=== PATIENT | male | born 1950 | race Caucasian/White ===

== ENCOUNTER 2021-07-21 19:42 | Emergency (ER) | payer MEDICAID, SELFPAY ==
--- NOTE | ~2021-07-21 | XR_ITS ---
EXAMINATION: XR ABDOMEN KUB CLINICAL INDICATION: G-tube placement check COMPARISON: None TECHNIQUE: AP view of the abdomen. FINDINGS: Contrast was injected via the gastrostomy tube. The injected contrast appears to be within the stomach partially outlining the G-tube balloon. Residual contrast noted within the transverse colon likely from prior procedure although I do not have any prior imaging available for comparison. XR/XR KUB IMPRESSION: Contrast injected via gastrostomy tube appears be within the stomach partially outlining the gastric tube balloon.
[2021-07-21 19:50] VITALS: BP 132/74; PULSE 82; O2SAT 100
[2021-07-21 20:03] VITALS: BP 149/84; PULSE 65; RESP 20; TEMP 36.4; O2SAT 95; BMI 20.9
--- NOTE | 2021-07-21 20:20 | PC.NURSE ---
Addendum entered by Park Varela 07/21/21 20:51: peg tube not G-tube. Original Note: pt alert, G-tube replaced by provider. pt tolerated it well, no sign of distress. Pt being discharge back to facility. Will continue to monitor.
--- NOTE | 2021-07-21 20:23 | ED.GENADULT ---
HPI - General Adult General Chief complaint: General Medical Stated complaint: g-tube replacement Time Seen by Provider: 07/21/21 20:16 Source: patient Mode of arrival: EMS History of Present Illness HPI narrative: [facility] , one of the feeding tip was broken failure no other active complaints Related Data Allergies Allergy/AdvReac Type Severity Reaction Status Date / Time No Known Allergies Allergy Verified 07/21/21 20:16 Review of Systems Review of Systems: Yes all other systems are reviewed and are negative [facility] Social History Social History Patient Tobacco Use Status: Never used Tobacco Use of substances other than those prescribed or required for medical reasons: No Advance Directives: No Advance Directives Information Provided: Yes Physical Exam Vital Signs: Vital Signs: Last Vital Signs Temp 97.9 F 07/21/21 20:24 Pulse 71 07/21/21 20:24 Resp 16 07/21/21 20:24 BP 167/103 H 07/21/21 20:24 Pulse Ox 96 07/21/21 20:24 BMI result Body Mass Index 20.9 Appearance: Alert. Oriented X3. No acute distress. ENT: Pharynx normal. Oral Mucosa moist Neck: Normal inspection. Neck supple. CVS: Normal heart rate and rhythm. Pulses normal. Respiratory: No respiratory distress. Equal air entry bilateral, Abdomen: Soft and nontender. Feeding tube in place, Bowel sounds are present, broken tip of G tube Skin: Skin warm and dry. Normal skin color. Normal skin turgor. Extremities: No lower extremity edema. Neuro: Oriented X 3. No motor deficit. Procedures Feeding Tube Replacement Type of Tube: gastrostomy Insertion Site Prior to Procedure: erythematous Tube Used for Reinsertion: other [place] Tube Size (F): 22 Balloon size (mL): 10 Verification of Placement: KUB and gastrografin injection Patient Tolerated Procedure: well Medical Decision Making MDM Narrative Medical decision making narrative: Patient GT was replaced with 22 [place] Discharge Plan Discharge Clinical Impression: Gastrostomy tube in place Patient Disposition: Home, Self-Care Instructions: PEG Tube Insertion (DC) Additional Instructions: Local care as advised 22 [place] G-tube was replaced and okay to use Interventions: ED Discharge Assessment Last Done: 07/21/21 20:51 Discharge Date/Time: 07/21/21 20:52
[2021-07-21 20:24] VITALS: BP 167/103; PULSE 71; RESP 16; TEMP 36.6; O2SAT 96
--- NOTE | 2021-07-21 20:44 | PC.NURSE ---
pt has a slight elevated bp provider is aware and pt is still okay to be discharge to facility. Per report given to ems and facility
== END 2021-07-21 20:52 | disposition home or self-care (01) ==
PROVIDERS: Emergency Provider Internal Medicine
DX: R10.9 Unspecified abdominal pain (principal); Z43.1 Encounter for attention to gastrostomy; Z79.899 Other long term (current) drug therapy
CPT/HCPCS: 43762; 74018; 99283; 99284

== ENCOUNTER 2021-08-22 23:03 | Inpatient (IN) | payer MEDICAID, SELFPAY ==
--- NOTE | 2021-08-22 | ECG_ITS ---
Test Reason : CP Blood Pressure : / mmHG Vent. Rate : 062 BPM Atrial Rate : 062 BPM P-R Int : 188 ms QRS Dur : 102 ms QT Int : 424 ms P-R-T Axes : 010 -04 030 degrees QTc Int : 430 ms Sinus rhythm with Premature atrial complexes Otherwise normal ECG No previous ECGs available Referred By: Generic ED Physician Electronically Signed By:Rony Romano
--- NOTE | ~2021-08-22 | IR_ITS ---
EXAMINATION: IR CHECK OR EXCHANGED GASTRIC TUBE CLINICAL INFORMATION: Excessive reflux resulting in aspiration pneumonia. COMPARISON: None. TECHNIQUE: A written consent was obtained from the health proxy following explaining procedure, benefits and risks. Patient was placed supine on fluoroscopy table and area around the entry point was cleaned and draped in the usual sterile manner. Under fluoroscopy guidance, 30 mL of contrast was injected through the G-tube and images were obtained. Subsequently, the balloon was deflated and catheter was advanced into the distal stomach/pyloric region. The catheter was then stabilized to the skin with dressing. Repeat contrast injection was performed and revealed contrast extending through the duodenum into the jejunum. FINDINGS: Initial contrast injection through the existing G-tube revealed catheter pulled out towards the skin and anterior wall of the stomach in the antrum. Contrast was seen extending into the fundus and eventually refluxed into the distal esophagus. The subsequent images after manipulation of catheter within the pylorus revealed contrast extending into duodenum and jejunum. IR/IR replace tube gastr jejun IMPRESSION: Successful repositioning of existent G-tube in the distal stomach/pylorus. The catheter was not exchanged for a new catheter. FLUOROSCOPY TIME: 1.3 minutes. DOSE AREA PRODUCT: 1192 cGy-cm2
--- NOTE | ~2021-08-22 | XR_ITS ---
EXAMINATION: XR CHEST CLINICAL INFORMATION: Left-sided chest pain, cough, rule out pneumonia COMPARISON: None TECHNIQUE: Frontal view of the chest was obtained. FINDINGS: Right IJ port catheter tip lies in the region of the upper SVC. There is left basilar airspace opacity and suspected small pleural effusion. Coarsened appearance of interstitial markings is noted diffusely. No appreciable pneumothorax. Cardiac size is within normal limits. Calcification is present at the aortic arch. A few chronic appearing left rib deformities are present. XR/XR chest 1V IMPRESSION: 1. Left basilar airspace opacity and suspected small effusion which could be due to pneumonia in the proper clinical setting. Of note, overlying chronic appearing lateral left rib deformities are seen, and some associated chronic parenchymal changes at the left base would be difficult to exclude without prior studies for comparison. 2. Coarsened appearance of the interstitium, which may reflect acute or chronic airways disease.
--- NOTE | ~2021-08-22 | CT_ITS ---
EXAMINATION: CT ANGIOGRAM OF THE CHEST WITH AND WITHOUT CONTRAST (CT PULMONARY ANGIOGRAM FOR PE) CLINICAL INFORMATION: Reason for Exam Left pleuritic chest pain rule out PE versus pneum COMPARISON: Chest x-ray 08/22/2021 TECHNIQUE: Prior to contrast administration, noncontrast localization images were obtained. Subsequently, multidetector volumetric imaging was performed from the thoracic inlet to below the diaphragms following the administration of 65 mL Omnipaque 350 intravenous contrast. No contrast reaction reported Sagittal, coronal, and MIP oblique sagittal reformatted images were obtained on the CT workstation, uploaded to PACS, and reviewed. This CT examination was performed using dose optimization techniques as appropriate, variously including the following: *Automated exposure control *Adjustment of mA and/or kV according to patient size (this includes techniques or standardized protocols for targeted exams where dose is matched to indication/reason for exam; i.e. extremities or head) *Use of iterative reconstruction technique Total exam dose-length product 263 mGy-cm FINDINGS: QUALITY OF STUDY/CONTRAST BOLUS: Satisfactory. PULMONARY ARTERIES: No central or segmental pulmonary emboli. THORACIC AORTA: No aneurysm or dissection. LUNG: There are regions of patchy consolidation along with some interstitial thickening in the inferior lingula and basilar left lower lobe. Debris is present in the left mainstem bronchus, and there is partial opacification of the segmental left lower lobe airways. Focal patchy opacity noted in the superior left lower lobe. Dependent opacity in the right lower lobe is more suggestive of atelectasis. PLEURA: No pleural effusion or pneumothorax. MEDIASTINUM: Visualized thyroid gland is grossly unremarkable, not well assessed due to streak artifact. There are scattered mediastinal lymph nodes, some of which are near the upper limits of normal in size. There is mild cardiomegaly without pericardial effusion. Coronary artery calcifications are present. Right IJ port catheter tip in the region of the distal SVC. CHEST WALL/AXILLA: No axillary or internal mammary lymphadenopathy. OSSEOUS STRUCTURES: Several healed left rib fractures are noted. Scattered degenerative changes are present in the spine. UPPER ABDOMEN: Percutaneous gastrostomy tube is present, with balloon in the region of the gastric antrum, not apposed against the inner wall the stomach. No reflux of contrast into the hepatic veins to suggest elevated right heart pressures. CT/CT angio chest PE protocol IMPRESSION: 1. No pulmonary embolus identified. 2. Patchy consolidations in the inferior lingula and left lower lobe. At least some of this may reflect sequelae of aspiration, as semisolid material is present within some of the left lung airways. Superimposed infectious pneumonia is also a possibility. 3. Percutaneous gastrostomy tube with balloon in the region of the gastric antrum. Consider repositioning under fluoroscopic guidance, as the balloon being in this location could predispose to a degree of gastric outlet obstruction. 4. Coronary artery calcifications. Correlation with cardiac risk factors is recommended. VTE: negative
[2021-08-22 23:16] VITALS: BP 135/82; BP 147/97; PULSE 61; PULSE 64; RESP 16; TEMP 36.6; O2SAT 96; BMI 20.6
[2021-08-22 23:27] VITALS: PULSE 65; RESP 14; O2SAT 96
--- NOTE | 2021-08-22 23:51 | ED_ITS ---
HPI - Chest Pain General Chief Complaint: Chest Pain Stated Complaint: CHEST PAIN Time Seen by Provider: 08/22/21 23:35 Source: patient, RN notes reviewed and old records reviewed Mode of arrival: EMS Limitations: no limitations History of Present Illness HPI narrative: 70-year-old male who presents emergency department for evaluation of left-sided chest pain radiating to his left arm. The patient states that the pain began around 22:30 while he is trying to fall asleep. He points to his left breast and left arm when asked to localize the pain. He states that the pain in his chest is a pressure-like sensation which came on gradually, the pressure is 8/10 at its worst. Pain does radiate down his left arm to his hand and states that this is a dull pain. He had associated nausea and shortness of breath. He feels lightheaded and dizzy. The patient states that he has a history of throat cancer diagnosed several months ago, he also has a history of liver cancer. He states that he is having difficulty swallowing his secretions and has had a cough for months. He denied fever, chills, abdominal pain, changes bowel movements. MD complaint: chest pain Pertinent past history: coronary artery disease (NSTEMI 10/2018) Onset (ago): hour(s) (1) Timing of current episode: constant and still present Prior episodes: No Onset: during rest Pain location: left chest Pain radiation: left arm Severity: severe Pain scale (0-10): 8 Quality: heaviness Relieving factors: nothing Exacerbating factors: nothing Context: other (Liver cancer, throat cancer, NSTEMI 10/2018, on [facility]) Associated symptoms: nausea and cough Treatment prior to arrival: none Risk Factors Coronary artery disease risk factors: smoking history (Former smoker quit 10 years prior, smoked for 25 years 1-2 packs) Pulmonary embolism risk factors: malignancy (Throat cancer, liver cancer) Related Data Allergies Allergy/AdvReac Type Severity Reaction Status Date / Time No Known Allergies Allergy Verified 07/21/21 20:16 Review of Systems Review of Systems: Yes all other systems are reviewed and are negative [facility] Past Medical History [facility] Narrative: Pertinent past medical history obtained from residential notes: NSTEMI 10/2018, hepatitis-C, GI bleed, depression, hypothyroidism, seizure disorder, throat cancer, liver cancer, dementia. 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 Social History Social History Patient Tobacco Use Status: Never used Tobacco Advance Directives: No Physical Exam Vital Signs: Vital Signs: Last Vital Signs Temp 97.8 F 08/23/21 05:53 Pulse 70 08/23/21 05:53 Resp 16 08/23/21 05:53 BP 128/94 H 08/23/21 05:53 Pulse Ox 96 08/23/21 05:53 BMI result Body Mass Index 20.6 Const: Other: Awake, alert male, patient's voice is very hoarse secondary to his throat cancer, his voice is comprehensible but he speaks very slowly, he does appear to have a cough secondary to difficulty swallowing his secretions and is spitting up his secretions, he is oriented to person and place and was able to answer all questions appropriately HENMT: Head: Yes normal to inspection, Yes normocephalic and Yes atraumatic Ears: external ears normal General nose exam: Normal external nose present Face and sinus: Yes normal facial exam Mouth: Normal oral and palatal mucosa present Throat: Yes posterior oropharynx normal Eyes: General: appearance normal, both eyes and all related structures Pupils: Equal, round and reactive pupils present Neck: Neck: Yes normal visual inspection, Yes no lymphadenopathy, Yes trachea midline and Yes supple Chest: Chest palpation & inspection: normal inspection of the chest and normal palpation of entire chest wall Resp: Effort & Inspection: normal respiratory effort and able to speak in complete sentences Auscultation: clear to auscultation bilaterally Cardio: Rate: regular rate Rhythm: abnormal rhythm irregularly irregular Heart sounds: S1 normal heart sound present, S2 normal heart sound present and no murmurs GI: Inspection: Yes normal to inspection Palpation (GI): Soft to palpation, nontender and no guarding Auscultation: normal bowel sounds : General: Yes no CVA tenderness Back/Spine/Pelvis: Back: no CVA tenderness Skin: General skin exam: no rashes or lesions noted Neuro: Cranial nerves: Yes CN's II-XII intact bilaterally and Yes Equal, round and reactive pupils present Cognition (Neuro): normal cognition Motor exam (neuro): 5 motor strength present throughout Extrem: General: Yes normal to inspection Psych: Appearance: grossly normal Affect: normal affect Attitude: cooperative Thought process: Normal thought process present Thought content: Normal thought content present Course Course Course Narrative: 70-year-old male who presents emergency department from his nursing facility for evaluation of chest pain which began 1 hour prior to arrival while the patient was trying to fall asleep, pain is located in his left chest and he describes it as a pressure/heaviness with pain radiating to his left shoulder, associated with nausea and shortness of breath. Patient also feels slightly lightheaded and dizzy. Pain was present at the time of my evaluation and was 8/10. Patient has a history of an NSTEMI 10/2018 and currently has throat and liver cancer, he is on Eliquis and aspirin. Vital signs were normal with an O2 saturation of 96% on room air. Physical examination did reveal that he has or speech secondary to his throat cancer and is having difficulty swallowing his secretions otherwise exam was unremarkable. Laboratory evaluation was ordered to include EKG, chest x-ray, CMP, D-dimer, lactic acid, lipase, troponin, COVID-19, I also ordered morphine 4 mg IV and Zofran 4 mg IV. 0006: 12 EKG was unremarkable except for occasional PAC. According to the ED nurse, paramedics reported that the patient was COVID-19 positive for over, nursing facility states the patient was only exposed to COVID-19 and has not been tested. 0201: Laboratory evaluation: CBC was unremarkable. CMP revealed a low sodium and chloride of 130 and 95. Elevated bicarb of 32. High sensitive troponin I was detectable but not elevated at 13.9, this will be repeated in 3 hours. Lactate was normal at 0.8. COVID-19 was negative. D-dimer was below detectable limits. Twelve EKG was unremarkable. Chest x-ray is concerning for left lower lobe effusion and infiltrate. I am concerned that the patient may have an aspiration pneumonia as the cause of his left-sided chest pain. Patient will be treated with Zosyn 3.375 mg IV. Given fact that he has cancer, so concerned that he might have a metastatic process versus pulmonary embolism to his left lower lung therefore a CT scan PE protocol will be obtain. 0334: CT pulmonary angiogram the chest was interpreted by the radiologist is patchy consolidation in the inferior lingular and left lower lobe with semi solid material present in the left lung airway. Superimposed infectious pneumonia is also possibility. Radiologist was also concerned about the position of the gastrostomy tube and that it may be near the pylorus and could cause pyloric obstruction. I will discuss these findings with the covering hospitalist and get the patient admitted for further management of an aspiration pneumonia. 0350: I did discuss the patient's presentation with the covering hospitalist, Dr. Freed and the patient will be admitted to the hospitalist service. 0507: Repeat high sensitivity troponin was 12.6, this was not significantly changed from the 1st and was actually lower suggesting the patient has not had myocardial injury is the cause of his chest pain. MDM - Chest Pain Lab Data Result diagrams: 08/23/21 00:08/23/21 00:22 Labs: Lab Results 08/23/21 08/23/21 08/23/21 Range/Units 00: 00: 00:22 WBC 6.5 (4.8-10.8) X10*3/uL RBC 3.71 L (4.60-5.80) X10*6/uL Hgb 12.2 L (14.0-18.0) g/dl Hct 36.5 L (42.0-52.0) % MCV 98.4 H (80.0-98.0) fL MCH 32.9 (27.0-33.0) pg MCHC 33.4 (31.0-36.0) g/dl RDW 13.6 (11.0-16.0) % Plt Count 242 (160-400) X10*3/uL MPV 9.3 L (9.4-12.4) fL Immature Gran % (Auto) 0.2 (0.0-0.4) % Neut % (Auto) 61.6 (45-73) % Lymph % (Auto) 20.3 (20-40) % Sau[place] % (Auto) 12.1 H (2-11) % Eos % (Auto) 4.6 H (0-4) % Baso % (Auto) 1.2 (0-2) % Lymph # (Auto) 1.3 (1.2-4.9) X10*3/uL [place] # (Auto) 0.8 (0.1-1.2) X10*3/uL Eos # (Auto) 0.3 (0.0-0.4) X10*3/uL Baso # (Auto) 0.1 (0.0-0.2) X10*3/uL Abs Immat Gran (auto) 0.01 (0.00-0.03) X10*3/uL Absolute Neuts (auto) 4.0 (2.0-8.3) x10*3/uL Absolute Nucleated RBC 0.000 (0.0-0.012) X10*3/uL Nucleated RBC % (auto) 0.0 (0.0-0.2) /100WBC APTT 39.5 H (24.1-38.0) SEC D-Dimer High Sensitivty < 150 NG/ML Sodium 130 L (135-145) mmol/L Potassium 4.5 (3.3-5.1) mmol/L Chloride 95 L (96-108) mmol/L Carbon Dioxide 32 H (22-29) mmol/L Anion Gap 8 L (12-20) BUN 14 (9-16) mg/dL Creatinine 0.61 (0.5-1.4) mg/dL Estim Creat Clear Calc 122.9 Estimated GFR > 60 Random Glucose 102 (60-115) mg/dL Lactic Acid (0.5-2.0) mmol/L Calcium 8.6 (8.4-10.2) mg/dL Total Bilirubin 0.7 (0.0-1.0) mg/dL AST 30 (5-37) U/L ALT 27 (0-40) U/L Alkaline Phosphatase 114 (39-117) U/L Troponin I High Sens (<3.5-35.0) ng/L Total Protein 6.7 (6.5-8.0) g/dL Albumin 3.1 L (3.5-5.0) g/dL Lipase 14 (8-78) U/L Urine Color Urine Appearance Urine pH (5.0-8.0) Ur Specific Ragland (1.005-1.025) Urine Protein (NEG-TRACE) MG/DL Urine Glucose (UA) (NEG) MG/DL Urine Ketones (NEG) MG/DL Urine Blood (NEG) Urine Nitrite (NEG) Ur Leukocyte Esterase (NEG) COVID-19 (TEAGAN) (Negative) COVID-19 Clin Com 08/23/21 08/23/21 08/23/21 Range/Units 00:22 00:22 00:23 WBC (4.8-10.8) X10*3/uL RBC (4.60-5.80) X10*6/uL Hgb (14.0-18.0) g/dl Hct (42.0-52.0) % MCV (80.0-98.0) fL MCH (27.0-33.0) pg MCHC (31.0-36.0) g/dl RDW (11.0-16.0) % Plt Count (160-400) X10*3/uL MPV (9.4-12.4) fL Immature Gran % (Auto) (0.0-0.4) % Neut % (Auto) (45-73) % Lymph % (Auto) (20-40) % Sauk % (Auto) (2-11) % Eos % (Auto) (0-4) % Baso % (Auto) (0-2) % Lymph # (Auto) (1.2-4.9) X10*3/uL Sau[place] # (Auto) (0.1-1.2) X10*3/uL Eos # (Auto) (0.0-0.4) X10*3/uL Baso # (Auto) (0.0-0.2) X10*3/uL Abs Immat Gran (auto) (0.00-0.03) X10*3/uL Absolute Neuts (auto) (2.0-8.3) x10*3/uL Absolute Nucleated RBC (0.0-0.012) X10*3/uL Nucleated RBC % (auto) (0.0-0.2) /100WBC APTT (24.1-38.0) SEC D-Dimer High Sensitivty NG/ML Sodium (135-145) mmol/L Potassium (3.3-5.1) mmol/L Chloride (96-108) mmol/L Carbon Dioxide (22-29) mmol/L Anion Gap (12-20) BUN (9-16) mg/dL Creatinine (0.5-1.4) mg/dL Estim Creat Clear Calc Estimated GFR Random Glucose (60-115) mg/dL Lactic Acid 0.8 (0.5-2.0) mmol/L Calcium (8.4-10.2) mg/dL Total Bilirubin (0.0-1.0) mg/dL AST (5-37) U/L ALT (0-40) U/L Alkaline Phosphatase (39-117) U/L Troponin I High Sens 13.9 (<3.5-35.0) ng/L Total Protein (6.5-8.0) g/dL Albumin (3.5-5.0) g/dL Lipase (8-78) U/L Urine Color Urine Appearance Urine pH (5.0-8.0) Ur Specific Ragland (1.005-1.025) Urine Protein (NEG-TRACE) MG/DL Urine Glucose (UA) (NEG) MG/DL Urine Ketones (NEG) MG/DL Urine Blood (NEG) Urine Nitrite (NEG) Ur Leukocyte Esterase (NEG) COVID-19 (TEAGAN) Negative (Negative) COVID-19 Clin Com See Note 08/23/21 08/23/21 Range/Units 00:29 03:19 WBC (4.8-10.8) X10*3/uL RBC (4.60-5.80) X10*6/uL Hgb (14.0-18.0) g/dl Hct (42.0-52.0) % MCV (80.0-98.0) fL MCH (27.0-33.0) pg MCHC (31.0-36.0) g/dl RDW (11.0-16.0) % Plt Count (160-400) X10*3/uL MPV (9.4-12.4) fL Immature Gran % (Auto) (0.0-0.4) % Neut % (Auto) (45-73) % Lymph % (Auto) (20-40) % Sauk % (Auto) (2-11) % Eos % (Auto) (0-4) % Baso % (Auto) (0-2) % Lymph # (Auto) (1.2-4.9) X10*3/uL [place] # (Auto) (0.1-1.2) X10*3/uL Eos # (Auto) (0.0-0.4) X10*3/uL Baso # (Auto) (0.0-0.2) X10*3/uL Abs Immat Gran (auto) (0.00-0.03) X10*3/uL Absolute Neuts (auto) (2.0-8.3) x10*3/uL Absolute Nucleated RBC (0.0-0.012) X10*3/uL Nucleated RBC % (auto) (0.0-0.2) /100WBC APTT (24.1-38.0) SEC D-Dimer High Sensitivty NG/ML Sodium (135-145) mmol/L Potassium (3.3-5.1) mmol/L Chloride (96-108) mmol/L Carbon Dioxide (22-29) mmol/L Anion Gap (12-20) BUN (9-16) mg/dL Creatinine (0.5-1.4) mg/dL Estim Creat Clear Calc Estimated GFR Random Glucose (60-115) mg/dL Lactic Acid (0.5-2.0) mmol/L Calcium (8.4-10.2) mg/dL Total Bilirubin (0.0-1.0) mg/dL AST (5-37) U/L ALT (0-40) U/L Alkaline Phosphatase (39-117) U/L Troponin I High Sens 12.6 (<3.5-35.0) ng/L Total Protein (6.5-8.0) g/dL Albumin (3.5-5.0) g/dL Lipase (8-78) U/L Urine Color YELLOW Urine Appearance CLEAR Urine pH 7.5 (5.0-8.0) Ur Specific Ragland 1.010 (1.005-1.025) Urine Protein NEG (NEG-TRACE) MG/DL Urine Glucose (UA) NEG (NEG) MG/DL Urine Ketones NEG (NEG) MG/DL Urine Blood NEG (NEG) Urine Nitrite NEG (NEG) Ur Leukocyte Esterase NEG (NEG) COVID-19 (TEAGAN) (Negative) COVID-19 Clin Com ECG Data ECG #1: Attestation: I personally reviewed and interpreted this ECG as follows: Ischemic changes: acute NSTEMI Interpretation: 2324: Normal sinus rhythm with a rate of 62, occasional PAC, normal UT interval, prolonged QRS duration, normal QTC interval, no ST segment elevation, no ST segment depression, no PVCs. Critical Care Time Critical Care Time Critical Care Time: Yes Total Critical Care Time: 40 Attestation: Critical Care: The patient was critically ill with a high probability of imminent or life threatening deterioration. I spent greater than 30 minutes of discontinuous time evaluating the patient,delivering critical care at the [facility], discussing and evaluating pertinent data with consultants. Critical care time does not include time spent performing separately billable procedures or teaching. Total time spent performing critical care was 45 minutes. Discharge Plan Discharge Clinical Impression: Chest pain Qualifiers: Chest pain type: unspecified Qualified Code(s): R07.9 - Chest pain, unspecified Aspiration pneumonia Qualifiers: Aspiration pneumonia type: unspecified Laterality: left Lung location: lower lobe of lung Qualified Code(s): J69.0 - Pneumonitis due to inhalation of food and vomit
[2021-08-23] VITALS (10 sets, daily range): BP systolic 119–169; BP diastolic 71–94; PULSE 58–70; RESP 16–22; TEMP 36.4–36.8; O2SAT 89–98
[2021-08-23] MEDS: ondansetron HCL 4 MG/2 ML VIAL IVPUSH (00:10)
[2021-08-23] MEDS: Morphine Sulfate 4 MG/ML CARTRIDGE IVPUSH ×2 (00:12→02:19)
[2021-08-23 00:32] LABS: MANUAL DIFF FLAG NO
[2021-08-23 00:36] LABS: Basophils Absolute Auto 0.1 X10*3/uL (0.0-0.2); Basophils Percent Auto 1.2 % (0-2); Eosinophils Absolute Auto 0.3 X10*3/uL (0.0-0.4); Eosinophils Percent Auto 4.6 % (0-4); Hematocrit 36.5 % (42.0-52.0); Hemoglobin 12.2 g/dl (14.0-18.0); Imm Gran Abs Auto 0.01 X10*3/uL (0.00-0.03); Imm Gran Pct Auto 0.2 % (0.0-0.4); Lymphocytes Absolute Auto 1.3 X10*3/uL (1.2-4.9); Lymphocytes Percent Auto 20.3 % (20-40); Mean Corpuscular HGB Conc 33.4 g/dl (31.0-36.0); Mean Corpuscular Hemoglobin 32.9 pg (27.0-33.0); Mean Corpuscular Volume 98.4 fL (80.0-98.0); Mean Platelet Volume 9.3 fL (9.4-12.4); Monocytes Absolute Auto 0.8 X10*3/uL (0.1-1.2); Monocytes Percent Auto 12.1 % (2-11); Neutrophils Percent Auto 61.6 % (45-73); Platelet Count 242 X10*3/uL (160-400); Red Blood Count 3.71 X10*6/uL (4.60-5.80); Red Cell Distribution Width 13.6 % (11.0-16.0); White Blood Count 6.5 X10*3/uL (4.8-10.8)
[2021-08-23 00:48] LABS: Appearance Urine CLEAR; Color Urine YELLOW; Glucose Urine UA NEG (NEG); Leukocyte Esterase Urine NEG (NEG); Nitrite Urine NEG (NEG); PH 7.5 (5.0-8.0); Urine Blood NEG (NEG); Urine Ketones NEG (NEG); Urine Protein NEG (NEG-TRACE)
[2021-08-23 00:50] LABS: D Dimer High Sensitivity < 150 NG/ML; Partial Thromboplastin Time 39.5 SEC (24.1-38.0)
[2021-08-23 00:52] LABS: Lactic Acid 0.8 mmol/L (0.5-2.0)
[2021-08-23 00:56] LABS: COVID-19 Test Negative (Negative)
[2021-08-23 01:00] LABS: Troponin-I High Sensitivity 13.9 ng/L (<3.5-35.0)
[2021-08-23 01:08] LABS: Albumin Level 3.1 g/dL (3.5-5.0); Alkaline Phosphatase 114 U/L (39-117); Anion Gap 8 (12-20); Aspartate Amino Transferase 30 U/L (5-37); Bilirubin Total 0.7 mg/dL (0.0-1.0); Blood Urea Nitrogen 14 mg/dL (9-16); Calcium 8.6 mg/dL (8.4-10.2); Carbon Dioxide 32 mmol/L (22-29); Chloride 95 mmol/L (96-108); Creatinine Clr Calc Pharmacy 122.9; Estimated Glomerular Filt Rate > 60; Glucose Random 102 mg/dL (60-115); Potassium 4.5 mmol/L (3.3-5.1); Sodium 130 mmol/L (135-145); Total Protein 6.7 g/dL (6.5-8.0)
[2021-08-23 01:14] LABS: Alanine Aminotransferase 27 U/L (0-40); Lipase 14 U/L (8-78)
[2021-08-23] MEDS: Piperacillin Sodium/Tazobactam 3.375 GM in 0.9 % Sodium Chloride 50 ML IV ×4 (02:14→20:15)
[2021-08-23] MEDS: iohexoL 350 MG/ML 100 ML INFUS..BTL 65 ML IV (02:56)
[2021-08-23 03:48] LABS: Troponin-I High Sensitivity 12.6 ng/L (<3.5-35.0)
[2021-08-23] MEDS: Heparin Sodium,Porcine 5,000 UNIT/ML VIAL 5000 UNIT SUBCUT ×2 (05:56→18:24)
[2021-08-23] MEDS: Ampicillin Sodium/Sulbactam Na 3 GM in 0.9 % Sodium Chloride 100 ML IV (05:58)
--- NOTE | 2021-08-23 06:52 | PM.IMHP ---
History of Present Illness Date of Service: 08/23/21 Chief Complaint: chest pain This is a 62-year-old male with extensive past medical history that includes history of CAD status post NSTEMI, alcohol dependence, opioid dependence, cocaine dependence, hypothyroidism, chronic viral hepatitis-C, history of chest pain, history of GI bleed, history of liver cancer, and dementia who presents from long-term with complaints of left-sided chest pain. Patient reports that chest pain started today, radiating to his left arm, he describes it as heavy pressure-like, constant, 8/10, exacerbated by cough no relieving factors. He is also reports that he has difficulty swallowing his secretion due to his history of throat cancer. Patient received his nutrition through a PEG tube and reports that he does not take anything p.o.. He has also had shortness of breath for the past few days as well as a cough that is productive, denies having any fever and no chills. Denies having abdominal pain, no nausea or vomiting, no diarrhea or constipation, and no urinary symptoms. On arrival to the ED patient hemodynamically stable with vital significant for hypoxia of 89% on room air Labs are significant for WBC count of 6.5, hemoglobin 12.2, medical 36.5, sodium of 130, UA negative. COVID-[address] angiogram shows no PE but patient has patchy consolidation in the inferior angle lung and left lower lobe, some of this may reflect sequelae of aspiration, there was semi-solid material present within some of the left lung airway. Patient also has percutaneous gastrostomy tube with balloon in the region of the gastric antrum consider repositioning. Review of Systems Review of Systems: Yes all other systems are reviewed and are negative [facility] Medical History (Updated 08/23/21 @ 07:10 by Gerson Freed MD) Dementia History of alcohol dependence History of chest pain History of GI bleed History of liver cancer History of throat cancer NSTEMI (non-ST elevated myocardial infarction) Family History (Updated 08/23/21 @ 07:07 by Gerson Freed MD) Other No family history of coronary artery disease Surgical History (Updated 08/23/21 @ 07:11 by Gerson Freed MD) History of surgery of liver Social History (Updated 08/23/21 @ 07:08 by Gerson Freed MD) Alcohol intake: former Patient Tobacco Use Status: Never used Tobacco Use of substances other than those prescribed or required for medical reasons: No Advance Directives: No Meds Allergies Allergy/AdvReac Type Severity Reaction Status Date / Time No Known Allergies Allergy Verified 07/21/21 20:16 Active Medications: Current Medications Acetaminophen (Acetaminophen Supp 650 Mg Supp.Rect) 650 mg NC Q6H PRN PRN Reason: Pain, Mild (Pain Scale 1-3) Heparin Sodium (Porcine) (Heparin Sodium,Porcine 5,000 Unit/Ml Vial) 5,000 unit SUBCUT Q12H [facility] Last Admin: 08/23/21 05:56 Dose: 5,000 unit Documented by: Ampicillin Sodium/Sulbactam (Sodium 3 gm/ Sodium Chloride) 100 mls @ 200 mls/hr IV Q8H [facility] Last Infusion: 08/23/21 06:28 Dose: Infused Documented by: Morphine Sulfate (Morphine Sulfate 4 Mg/Ml Cartridge) 4 mg IVPUSH Q4H PRN; Protocol PRN Reason: Pain, Severe (Pain Scale 7-10) Ondansetron HCl (Ondansetron Hcl 4 Mg/2 Ml Vial) 4 mg IVPUSH Q8H PRN PRN Reason: Nausea and Vomiting Sodium Chloride (0.9 % Sodium Chloride Flush 3 Ml Syringe) 3 ml IVFLUSH QSHIFT [facility] Physical Exam Vital Signs and Narrative: Vital Signs: Last Vital Signs Temp 97.8 F 08/23/21 05:53 Pulse 70 08/23/21 05:53 Resp 16 08/23/21 05:53 BP 128/94 H 08/23/21 05:53 Pulse Ox 96 08/23/21 05:53 BMI result Body Mass Index 20.6 Const: General: cooperative and no acute distress Orientation/consciousness: patient oriented x3 Eyes: General: appearance normal, both eyes and all related structures Resp: Effort & Inspection: normal respiratory effort Cardio: Rate: regular rate Rhythm: regular rhythm GI: Other: G-tube in place Palpation (GI): Soft to palpation Auscultation: normal bowel sounds Skin: General skin exam: no rashes or lesions noted Neuro: General: patient oriented x3 Cognition (Neuro): normal cognition Extrem: General: Yes normal to inspection and Yes no pedal edema Results Labs CBC and Chem 7: 08/23/21 00:22 08/23/21 00:22 Labs: Laboratory Results - last 24 hr 08/23/21 08/23/21 08/23/21 00:22 00:22 00:22 MCV 98.4 H MCH 32.9 MCHC 33.4 RDW 13.6 Plt Count 242 MPV 9.3 L Immature Gran % (Auto) 0.2 Neut % (Auto) 61.6 Lymph % (Auto) 20.3 Door % (Auto) 12.1 H Eos % (Auto) 4.6 H Baso % (Auto) 1.2 Lymph # (Auto) 1.3 Door # (Auto) 0.8 Eos # (Auto) 0.3 Baso # (Auto) 0.1 Abs Immat Gran (auto) 0.01 Absolute Neuts (auto) 4.0 Absolute Nucleated RBC 0.000 Nucleated RBC % (auto) 0.0 APTT 39.5 H D-Dimer High Sensitivty < 150 Anion Gap 8 L Estim Creat Clear Calc 122.9 Estimated GFR > 60 Random Glucose 102 Lactic Acid Calcium 8.6 Total Bilirubin 0.7 AST 30 ALT 27 Alkaline Phosphatase 114 Total Protein 6.7 Albumin 3.1 L Lipase 14 Urine Color Urine Appearance Urine pH Ur Specific Sabine Urine Protein Urine Glucose (UA) Urine Ketones Urine Blood Urine Nitrite Ur Leukocyte Esterase COVID-19 ([facility]) COVID-19 [place] Com 08/23/21 08/23/21 08/23/21 00:22 00:23 00:29 MCV MCH MCHC RDW Plt Count MPV Immature Gran % (Auto) Neut % (Auto) Lymph % (Auto) Door % (Auto) Eos % (Auto) Baso % (Auto) Lymph # (Auto) Door # (Auto) Eos # (Auto) Baso # (Auto) Abs Immat Gran (auto) Absolute Neuts (auto) Absolute Nucleated RBC Nucleated RBC % (auto) APTT D-Dimer High Sensitivty Anion Gap Estim Creat Clear Calc Estimated GFR Random Glucose Lactic Acid 0.8 Calcium Total Bilirubin AST ALT Alkaline Phosphatase Total Protein Albumin Lipase Urine Color YELLOW Urine Appearance CLEAR Urine pH 7.5 Ur Specific [place]ine 1.010 Urine Protein NEG Urine Glucose (UA) NEG Urine Ketones NEG Urine Blood NEG Urine Nitrite NEG Ur Leukocyte Esterase NEG COVID-19 ([facility]) Negative COVID-19 Clin Com See Note ECG Interpretation: EKG shows sinus rhythm with no evidence of ST T wave changes Imaging Radiologist's Impressions: Impressions Chest X-Ray 08/22/21 23:58 IMPRESSION: 1. Left basilar airspace opacity and suspected small effusion which could be due to pneumonia in the proper clinical setting. Of note, overlying chronic appearing lateral left rib deformities are seen, and some associated chronic parenchymal changes at the left base would be difficult to exclude without prior studies for comparison. 2. Coarsened appearance of the interstitium, which may reflect acute or chronic airways disease. Chest CTA 08/23/21 02:47 IMPRESSION: 1. No pulmonary embolus identified. 2. Patchy consolidations in the inferior lingula and left lower lobe. At least some of this may reflect sequelae of aspiration, as semisolid material is present within some of the left lung airways. Superimposed infectious pneumonia is also a possibility. 3. Percutaneous gastrostomy tube with balloon in the region of the gastric antrum. Consider repositioning under fluoroscopic guidance, as the balloon being in this location could predispose to a degree of gastric outlet obstruction. 4. Coronary artery calcifications. Correlation with cardiac risk factors is recommended. VTE: negative Assessment and Plan (1) Chest pain: Qualifiers: Chest pain type: unspecified Qualified Code(s): R07.9 - Chest pain, unspecified Status: Acute (2) Aspiration pneumonia: Qualifiers: Aspiration pneumonia type: unspecified Laterality: left Lung location: lower lobe of lung Qualified Code(s): J69.0 - Pneumonitis due to inhalation of food and vomit Status: Acute Plan 62-year-old male with significant past medical history for liver cancer, history of throat cancer s/p G-tube placement, NSTEMI, chronic viral hepatitis-C presents to the hospital with complaints of chest pain found to have aspiration pneumonia # Chest pain - unlikely to be cardiac in nature - trop negative - EKG shows no evidence of ACS - No evidence of PE - Has evidence of PNA on chest ct which likely contributing to his pain - conservative management of pain - tx of aspiration PNA as below # Aspiration pna - hx of throat cancer - has difficulty swallowing his secretions - CTA as above - will tx with IV abx - Speech consulted # PEG in place - will need repositioning which may be contirbuting to his aspiration - will consult IR all other meds are pending review at this time- will resume once meds reconciled DVT ppx: heparin subq Quality Stroke Does the patient have a stroke diagnosis?: No VTE Prior VTE?: No VTE Risk Level:: Medical - moderate - high VTE Device Contraindication: Treatment Not Indicated VTE Drug Contraindication: N/A - Med Ordered
[2021-08-23] MEDS: 0.9 % Sodium Chloride 1,000 ML 80 ML IVCONT ×2 (07:35→20:16)
[2021-08-23 07:43] LABS: Glucose, Whole Blood 69 mg/dL (60-115)
--- NOTE | 2021-08-23 07:43 | PC.NURSE ---
Sodium Chloride started at 80 ml/hr. pt sleeping.
--- NOTE | 2021-08-23 09:00 | PC.NURSE ---
Dada Nurse Sales Data Analyst from [facility] where the pt resides called for update on pt's status. Dada confirmed that pt is NPO, all meds and feedings go through his G-tube. pt gets 375cc bolus of Jevity 1.0 four times daily and 250cc flush twice daily. Pt given 375 cc bolus of Jevity 1.0 followed by 250 cc flush. g-tube patent, pt tolerated well. will continue to monitor.
--- NOTE | 2021-08-23 09:10 | PHA.MEDREC ---
Pharmacy Consult ? Medication Reconciliation Pharmacy has completed the medication reconciliation. FROM [place] [facility]
[2021-08-23 12:16] LABS: MANUAL DIFF FLAG NO
[2021-08-23 12:17] LABS: Basophils Absolute Auto 0.1 X10*3/uL (0.0-0.2); Basophils Percent Auto 0.9 % (0-2); Eosinophils Absolute Auto 0.2 X10*3/uL (0.0-0.4); Eosinophils Percent Auto 3.8 % (0-4); Hematocrit 35.4 % (42.0-52.0); Hemoglobin 11.5 g/dl (14.0-18.0); Imm Gran Abs Auto 0.02 X10*3/uL (0.00-0.03); Imm Gran Pct Auto 0.3 % (0.0-0.4); Lymphocytes Absolute Auto 0.9 X10*3/uL (1.2-4.9); Lymphocytes Percent Auto 15.3 % (20-40); Mean Corpuscular HGB Conc 32.5 g/dl (31.0-36.0); Mean Corpuscular Hemoglobin 32.8 pg (27.0-33.0); Mean Corpuscular Volume 100.9 fL (80.0-98.0); Monocytes Absolute Auto 0.8 X10*3/uL (0.1-1.2); Neutrophils Absolute Auto 3.9 x10*3/uL (2.0-8.3); Neutrophils Percent Auto 66.7 % (45-73); Platelet Count 242 X10*3/uL (160-400); Red Blood Count 3.51 X10*6/uL (4.60-5.80); Red Cell Distribution Width 13.9 % (11.0-16.0); White Blood Count 5.8 X10*3/uL (4.8-10.8)
[2021-08-23 12:41] LABS: Anion Gap 9 (12-20); Blood Urea Nitrogen 11 mg/dL (9-16); Calcium 8.5 mg/dL (8.4-10.2); Carbon Dioxide 33 mmol/L (22-29); Chloride 98 mmol/L (96-108); Estimated Glomerular Filt Rate > 60; Glucose Random 88 mg/dL (60-115); Potassium 4.6 mmol/L (3.3-5.1); Sodium 135 mmol/L (135-145)
--- NOTE | 2021-08-23 13:45 | PC.NURSE ---
pt's sister Sisi called for update on pt's status. Sisi lives in [place] and per her request please call cell phone for non-emergencies [phone]. Her home number is [phone] please call home phone in case of an emergency. Sisi does not want the pt to have her home phone number. Jevity 375cc bolus given via g-tube followed by 250cc flush, iv fluid infusing, antibiotic given as documented. pt also given 240cc black coffee via gtube per his request and confirmed by sister. ED provider aware. will continue to monitor.
[2021-08-23] MEDS: Metoprolol Tartrate 25 MG TABLET G-TUBE ×2 (14:07→20:39)
[2021-08-23] MEDS: levETIRAcetam Oral Soln 500 MG/5 ML 1500 MG G-TUBE ×2 (15:57→20:39)
--- NOTE | 2021-08-23 19:01 | PC.NURSE ---
This RN assumed care at this time. Previous RN Momo gave patient QHS feeding of Jevity 375, 250 flush, and 240 of coffee. No difficulty, tolerated feeding well. Patient appears comfortable and in no acute distress at this time.
[2021-08-23] MEDS: Docusate Sodium 100 MG/10 ML LIQUID 200 MG G-TUBE (20:38)
[2021-08-23] MEDS: Famotidine 20 MG TABLET 40 MG G-TUBE (20:39)
[2021-08-23] MEDS: Apixaban 5 MG TABLET G-TUBE (20:39)
[2021-08-23] MEDS: OLANZapine 10 MG TABLET G-TUBE (20:39)
[2021-08-23] MEDS: Atorvastatin Calcium 80 MG TABLET G-TUBE (20:39)
[2021-08-23] MEDS: Melatonin 3 MG TABLET 6 MG G-TUBE (20:54)
[2021-08-23] MEDS: Melatonin 3 MG TABLET 12 MG G-TUBE (21:56)
[2021-08-24] VITALS (9 sets, daily range): BP systolic 112–167; BP diastolic 71–94; PULSE 47–66; RESP 15–18; TEMP 36–37.1; O2SAT 93–98; BMI 20.6
[2021-08-24] MEDS: Piperacillin Sodium/Tazobactam 3.375 GM in 0.9 % Sodium Chloride 50 ML IV ×4 (02:15→20:39)
[2021-08-24] MEDS: Heparin Sodium,Porcine 5,000 UNIT/ML VIAL 5000 UNIT SUBCUT ×2 (05:13→18:00)
[2021-08-24] MEDS: levETIRAcetam Oral Soln 500 MG/5 ML 1500 MG G-TUBE ×2 (08:10→20:38)
[2021-08-24] MEDS: Apixaban 5 MG TABLET G-TUBE ×2 (08:11→20:39)
[2021-08-24] MEDS: 0.9 % Sodium Chloride 1,000 ML 80 ML IVCONT (08:11)
[2021-08-24] MEDS: Aspirin 81 MG TAB.CHEW G-TUBE (08:11)
[2021-08-24] MEDS: Metoprolol Tartrate 25 MG TABLET G-TUBE ×3 (08:12→20:39)
[2021-08-24] MEDS: methIMAzole 5 MG TABLET G-TUBE (08:12)
--- NOTE | 2021-08-24 08:47 | MHC.CM.PN ---
PATIENT IS IN FROM [facility] PLAN IS FOR RETURN TO FACILITY. ACCORDING TO RECORDS THAT CAME WITH PATIENT, HE HAS BEEN COVID VACCINATED AND A BOOSTER; ALL MODERNA 07/31/20 08/28/20 05/13/21 INFORMATION UPLOADED INTO [employer] WELL. THERE IS AN INVOKED HCP IN CHART, WELL, NAMING HIS SISTER REY ([phone]) CASE MANAGEMENT FOLLOWING FOR PATIENT'S DISCHARGE.
[2021-08-24 09:29] LABS: Anion Gap 9 (12-20); Blood Urea Nitrogen 9 mg/dL (9-16); Calcium 8.6 mg/dL (8.4-10.2); Carbon Dioxide 32 mmol/L (22-29); Chloride 99 mmol/L (96-108); Estimated Glomerular Filt Rate > 60; Glucose Random 80 mg/dL (60-115); Potassium 4.9 mmol/L (3.3-5.1); Sodium 135 mmol/L (135-145)
--- NOTE | 2021-08-24 09:44 | MHC.CDI.CONC ---
CDI Concurrent Query Documentation Clarification: PHYSICIAN'S DOCUMENTATION REQUEST Date of Query: 08/24/21 0944 Patient Name: Vish Minor Admit Date: 08/23/21 Dear Doctor, A review of the medical record indicates additional documentation may be needed. Please review below and update the documentation accordingly. Risk Factors/Clinical Indicators/Treatments Lab findings: sodium 130 L IV fluids. Based on the above, could you clarify in the Progress Notes the appropriate diagnosis, if significant, that supports the above abnormalities and additional evaluation, monitoring, and/or treatment rendered: Labs Hyponatremia or other etiology of lab findings. Labs indicate a diagnosis of (please specify) Other (please specify) Unable to determine Use of terms such as suspected, likely, concern for, or probable (associated with a specific diagnosis that is being evaluated, monitored, or treated as if it exists) are acceptable and can be coded in the inpatient setting, when documented at the time of discharge. Thank you, Corina Stanley [facility], CDIS Extension: [phone] Please use your independent medical judgment in providing your response. THIS QUERY IS PART OF THE PERMANENT MEDICAL RECORD Provider Response: Other Other Diagnosis: Hyponatremia
[2021-08-24] MEDS: iohexoL 300 MG/ML 100 ML INFUS..BTL IV (10:43)
[2021-08-24] MEDS: Lidocaine HCl 1 % 20 ML VIAL 10 ML INFILTRATI (10:50)
--- NOTE | 2021-08-24 10:55 | P.PNIM_ITS ---
Subjective Subjective Date of Service: 08/24/21 Interval History: the patient was seen and evaluated this morning Laying in bed, feels better than yesterday still requiring O2 supplement Denies any fever, chills or chest pain No reported other overnight events. Systemic review: No fever, chills but has generalized weakness No chest pain, palpitation No shortness of breath reporting some coughing No abdominal pain, nausea or vomiting No urinary symptoms No any rash or wounds Physical Exam Vital Signs: Vital Signs: Last Vital Signs Temp 96.8 F 08/24/21 07:43 Pulse 63 08/24/21 07:43 Resp 15 08/24/21 07:43 BP 152/89 H 08/24/21 07:43 Pulse Ox 97 08/24/21 07:43 BMI result Body Mass Index 20.6 Const: Other: Constitutional : Alert, oriented, not in distress Neck : Normal inspection, Supple Cardiovascular : RRR, S1 S2, no lower extremity edema Respiratory : Fair bilateral air entry, basal bilateral crackles, wheezes or rhonchi, on oxygen supplement Gastrointestinal: soft, lax, Normal bowel sounds, Non tender, G-tube in place with no surrounding erythema or drainage Skin : Warm, Dry Neurological : Alert & oriented x3, No focal deficit Objective Data Active Medications Acetaminophen (Acetaminophen Supp 650 Mg Supp.Rect) 650 mg OR Q6H PRN PRN Reason: Pain, Mild (Pain Scale 1-3) Apixaban (Apixaban 5 Mg Tablet) 5 mg G-TUBE BID [facility] Last Admin: 08/24/21 08:11 Dose: 5 mg Documented by: ROSALEE Aspirin (Aspirin 81 Mg Tab.Chew) 81 mg G-TUBE DAILY [facility] Last Admin: 08/24/21 08:11 Dose: 81 mg Documented by: ROSALEE Atorvastatin Calcium (Atorvastatin Calcium 80 Mg Tablet) 80 mg G-TUBE BEDTIME [facility] Last Admin: 08/23/21 20:39 Dose: 80 mg Documented by: LOUANN Docusate Sodium (Docusate Sodium 100 Mg/10 Ml Liquid) 200 mg G-TUBE DAILY@1999 [facility] Last Admin: 08/23/21 20:38 Dose: 200 mg Documented by: LOUANN Famotidine (Famotidine 20 Mg Tablet) 40 mg G-TUBE BEDTIME [facility] Last Admin: 08/23/21 20:39 Dose: 40 mg Documented by: LOUANN Heparin Sodium (Porcine) (Heparin Sodium,Porcine 5,000 Unit/Ml Vial) 5,000 unit SUBCUT Q12H [facility] Last Admin: 08/24/21 05:13 Dose: 5,000 unit Documented by: ANDRE Sodium Chloride (Ns) 1,000 mls @ 80 mls/hr IVCONT .[id number] [facility] Last Admin: 08/24/21 08:11 Dose: 80 mls/hr Documented by: ROSALEE Piperacillin Sod/Tazobactam (Sod 3.375 gm/ Sodium Chloride) 50 mls @ 100 mls/hr IV Q6H [facility] Last Infusion: 08/24/21 08:51 Dose: 0 mls/hr Documented by: ROSALEE Levetiracetam (Levetiracetam Oral Soln 500 Mg/5 Ml) 1,500 mg G-TUBE BID [facility] Last Admin: 08/24/21 08:10 Dose: 1,500 mg Documented by: ROSALEE Loperamide HCl (Loperamide Hcl 2 Mg Capsule) 2 mg PO Q6H PRN PRN Reason: Loose Stool Melatonin (Melatonin 3 Mg Tablet) 18 mg G-TUBE BEDTIME [facility] Methimazole (Methimazole 5 Mg Tablet) 5 mg G-TUBE DAILY [facility] Last Admin: 08/24/21 08:12 Dose: 5 mg Documented by: ROSALEE Metoprolol Tartrate (Metoprolol Tartrate 25 Mg Tablet) 25 mg G-TUBE TID [facility]; Protocol Last Admin: 08/24/21 08:12 Dose: 25 mg Documented by: ROSALEE Morphine Sulfate (Morphine Sulfate 4 Mg/Ml Cartridge) 4 mg IVPUSH Q4H PRN; Protocol PRN Reason: Pain, Severe (Pain Scale 7-10) Olanzapine (Olanzapine 10 Mg Tablet) 10 mg G-TUBE DAILY@1999 [facility] Last Admin: 08/23/21 20:39 Dose: 10 mg Documented by: LOUANN Omeprazole (Omeprazole 20 Mg/10 Ml Susp.Recon) 20 mg G-TUBE DAILY@1999 [facility] Last Admin: 08/23/21 20:38 Dose: 20 mg Documented by: LOUANN Ondansetron HCl (Ondansetron Hcl 4 Mg/2 Ml Vial) 4 mg IVPUSH Q8H PRN PRN Reason: Nausea and Vomiting Sodium Chloride (0.9 % Sodium Chloride Flush 3 Ml Syringe) 3 ml IVFLUSH QSHIFT [facility] Last Admin: 08/24/21 08:12 Dose: Not Given Documented by: ROSALEE Non-Admin Reason: IV Running Labs CBC & Chem 7: 08/23/21 12:11 08/24/21 08:19 Labs: Laboratory Results - last 24 hr 08/23/21 08/23/21 08/24/21 12:11 12:11 08:19 MCV 100.9 H MCH 32.8 MCHC 32.5 RDW 13.9 Plt Count 242 MPV 9.0 L Immature Gran % (Auto) 0.3 Neut % (Auto) 66.7 Lymph % (Auto) 15.3 L Petroleum % (Auto) 13.0 H Eos % (Auto) 3.8 Baso % (Auto) 0.9 Lymph # (Auto) 0.9 L Petroleum # (Auto) 0.8 Eos # (Auto) 0.2 Baso # (Auto) 0.1 Abs Immat Gran (auto) 0.02 Absolute Neuts (auto) 3.9 Absolute Nucleated RBC 0.000 Nucleated RBC % (auto) 0.0 Anion Gap 9 L 9 L Estim Creat Clear Calc 125.0 125.0 Estimated GFR > 60 > 60 Random Glucose 88 80 Calcium 8.5 8.6 Microbiology Microbiology Results: Microbiology 08/23/21 00:23 Blood Culture - Preliminary Blood - Venous No growth after 24 hours. 08/23/21 00:22 Blood Culture - Preliminary Blood - Venous No growth after 24 hours. Assessment and Plan (1) Aspiration pneumonia: Status: Acute (2) Gastrostomy complication: Status: Acute Plan 62-year-old male with significant past medical history for liver cancer, history of throat cancer s/p G-tube placement, NSTEMI, chronic viral hepatitis-C presents to the hospital with complaints of chest pain found to have aspiration pneumonia # Chest pain # secondary to Aspiration pna Hx of throat cancer has difficulty swallowing his secretions CTA showing bilateral infiltrates suggestive of possible aspiration Continue IV abx Pending final cultures # G-tube problem CT scan showing positioning concern for possible obstruction which may be contirbuting to his aspiration IR to do repositioning of the tube today To get nutritional assessment for tube feed Resume the rest of his home medications DVT ppx heparin subq Quality Stroke Does the patient have a stroke diagnosis?: No VTE Prior VTE?: No VTE Risk Level:: Medical - moderate - high VTE Device Contraindication: Treatment Not Indicated VTE Drug Contraindication: N/A - Med Ordered
--- NOTE | 2021-08-24 13:33 | MHC.SLORD ---
Speech Language Pathology Order Status: Order for speech consult received 08/23/21- INSET CUTTER called and spoke with staff at [facility] this morning- Per staff, patient is NPO at baseline with G-tube- Receives feedings and medicine through G-tube. Per MD, G-tube will need repositioning which may be contributing to his aspiration. Discussed with attending MD- Speech order not indicated and is cancelled by MD.
--- NOTE | 2021-08-24 13:35 | MHC.CLN ---
NUTRITION PATIENT LIVES AT [facility]. AT FACILITY, RECEIVED JEVITY 1.5 VIA BOLUS, 375 ML 4 TIMES DAILY. PER HOSPITAL FORMULARY, RECOMMEND OSMOLITE 1.5, BOLUS 375 ML Q 6 HOURS. FLUSH 240 ML WATER Q 6 HOURS. PROVIDES COMPARABLE NUTRITION/HYDRATION JEVITY 1.5. OSMOLITE FORMULA AND FLUSH PROVIDE 1500 ML FORMULA; 2250 KCAL (30 KCAL/KG); 94 G PROTEIN (1.25 G/KG); FORMULA PLUS RTUBG=1396 ML (28 ML/KG). TUBE FEEDING AND FLUSH PROVIDING >90% OF ESTIMATED CALORIE, PROTEIN, AND FLUID NEEDS. PER FACILITY, LIKES WARM COFFEE VIA G TUBE. OK TO CONTINUE JEVITY 1.5 WHEN RETURNS TO FACILITY.
[2021-08-24] MEDS: Melatonin 3 MG TABLET 18 MG G-TUBE (20:38)
[2021-08-24] MEDS: Docusate Sodium 100 MG/10 ML LIQUID 200 MG G-TUBE (20:38)
[2021-08-24] MEDS: 0.9 % Sodium Chloride Flush 3 ML SYRINGE IVFLUSH (20:39)
[2021-08-24] MEDS: OLANZapine 10 MG TABLET G-TUBE (20:39)
[2021-08-24] MEDS: Atorvastatin Calcium 80 MG TABLET G-TUBE (20:39)
[2021-08-24] MEDS: Famotidine 20 MG TABLET 40 MG G-TUBE (20:39)
[2021-08-25] MEDS: Piperacillin Sodium/Tazobactam 3.375 GM in 0.9 % Sodium Chloride 50 ML IV ×2 (02:03→08:34)
[2021-08-25 03:45] VITALS: BP 119/63; PULSE 73; RESP 14; TEMP 36.4; O2SAT 94
[2021-08-25] MEDS: Heparin Sodium,Porcine 5,000 UNIT/ML VIAL 5000 UNIT SUBCUT (06:13)
[2021-08-25 06:48] LABS: Hematocrit 36.6 % (42.0-52.0); Hemoglobin 12.1 g/dl (14.0-18.0); Mean Corpuscular HGB Conc 33.1 g/dl (31.0-36.0); Mean Corpuscular Hemoglobin 32.4 pg (27.0-33.0); Mean Corpuscular Volume 98.1 fL (80.0-98.0); Mean Platelet Volume 9.8 fL (9.4-12.4); Platelet Count 268 X10*3/uL (160-400); Red Blood Count 3.73 X10*6/uL (4.60-5.80); Red Cell Distribution Width 13.4 % (11.0-16.0); White Blood Count 6.3 X10*3/uL (4.8-10.8)
[2021-08-25 06:50] LABS: Anion Gap 11 (12-20); Blood Urea Nitrogen 10 mg/dL (9-16); Calcium 8.7 mg/dL (8.4-10.2); Carbon Dioxide 31 mmol/L (22-29); Chloride 98 mmol/L (96-108); Creatinine Clr Calc Pharmacy 122.9; Estimated Glomerular Filt Rate > 60; Glucose Random 84 mg/dL (60-115); Potassium 4.5 mmol/L (3.3-5.1); Sodium 135 mmol/L (135-145)
[2021-08-25 08:00] VITALS: BP 156/90; PULSE 73; RESP 15; TEMP 36.2; O2SAT 96
[2021-08-25] MEDS: levETIRAcetam Oral Soln 500 MG/5 ML 1500 MG G-TUBE (08:35)
[2021-08-25] MEDS: Metoprolol Tartrate 25 MG TABLET G-TUBE (08:35)
[2021-08-25] MEDS: Aspirin 81 MG TAB.CHEW G-TUBE (08:35)
[2021-08-25] MEDS: methIMAzole 5 MG TABLET G-TUBE (08:35)
[2021-08-25] MEDS: Apixaban 5 MG TABLET G-TUBE (08:35)
[2021-08-25] MEDS: 0.9 % Sodium Chloride Flush 3 ML SYRINGE IVFLUSH (08:36)
--- NOTE | 2021-08-25 09:57 | PM.DS ---
DS: Providers Provider Date of Service: 08/25/21 Date of admission: 08/23/21 05:21 Primary care physician: Zenaida Salgado MD DS: Diagnosis Discharge Diagnosis (1) Aspiration pneumonia: Status: Acute (2) Gastrostomy complication: Status: Acute DS: Summary Hospital Course Hospital Course: Admission note HPI This is a 62-year-old male with extensive past medical history that includes history of CAD status post NSTEMI, alcohol dependence, opioid dependence, cocaine dependence, hypothyroidism, chronic viral hepatitis-C, history of chest pain, history of GI bleed, history of liver cancer, and dementia who presents from group home with complaints of left-sided chest pain.? Patient reports that chest pain started today, radiating to his left arm, he describes it as heavy pressure-like, constant, 8/10, exacerbated by cough no relieving factors.? He is also reports that he has difficulty swallowing his secretion due to his history of throat cancer.? Patient received his nutrition through a PEG tube and reports that he does not take anything p.o..? He has also had shortness of breath for the past few days as well as a cough that is productive, denies having any fever and no chills.? Denies having abdominal pain, no nausea or vomiting, no diarrhea or constipation, and no urinary symptoms.? On arrival to the ED patient hemodynamically stable with vital significant for hypoxia of 89% on room air Labs are significant for WBC count of 6.5, hemoglobin 12.2, medical 36.5, sodium of 130, UA negative.? COVID-[address] angiogram shows no PE but patient has patchy consolidation in the inferior angle lung and left lower lobe, some of this may reflect sequelae of aspiration, there was semi-solid material present within some of the left lung airway. Patient also has percutaneous gastrostomy tube with balloon in the region of the gastric antrum consider repositioning. Hospital course The patient was admitted for treatment of aspiration pneumonia. He was started on IV Zosyn and oxygen supplement. Blood cultures remain negative. He was weaned off the oxygen and ambulated by your physical therapy team with no drop in his oxygen level. Evaluated by Interventional Radiology team who did repositioning of the gastrostomy. Diet was continued with no reported problems. Continue antibiotics for total of 7 days. Time Spent with Patient Time attestation: Total time spent providing and/or coordinating discharge services: Discharge coordination time: Greater than 30 minutes Quality: Stroke Does the patient have a stroke diagnosis?: No Physical Exam Vital Signs: Vital Signs: Last Vital Signs Temp 97.2 F 08/25/21 08:00 Pulse 73 08/25/21 08:00 Resp 15 08/25/21 08:00 BP 156/90 H 08/25/21 08:00 Pulse Ox 96 08/25/21 08:00 BMI result Body Mass Index 20.6 Const: Other: Constitutional : Alert, oriented, not in distress Neck : Normal inspection, Supple Cardiovascular : RRR, S1 S2, no lower extremity edema Respiratory : Fair bilateral air entry, no wheezes or crackles Gastrointestinal: soft, lax, Normal bowel sounds, Non tender, G-tube in place with no surrounding erythema or drainage Skin : Warm, Dry Neurological : Alert & oriented x3, No focal deficit DS: Data Data Completed and Pending Labs on day of discharge: Laboratory Results - last 24 hr 08/25/21 08/25/21 06:11 06:11 WBC 6.3 RBC 3.73 L Hgb 12.1 L Hct 36.6 L MCV 98.1 H MCH 32.4 MCHC 33.1 RDW 13.4 Plt Count 268 MPV 9.8 Absolute Nucleated RBC 0.000 Nucleated RBC % (auto) 0.0 Sodium 135 Potassium 4.5 Chloride 98 Carbon Dioxide 31 H Anion Gap 11 L BUN 10 Creatinine 0.61 Estim Creat Clear Calc 122.9 Estimated GFR > 60 Random Glucose 84 Calcium 8.7 Preliminary micro results at discharge 08/23/21 00:23 Blood Culture - Preliminary Blood - Venous No growth after 48 hours. 08/23/21 00:22 Blood Culture - Preliminary Blood - Venous No growth after 48 hours. Discharge Plan Discharge Patient Disposition: er [facility] Discharge Diagnosis: Aspiration pneumonia Gastrostomy problem Referrals: [facility] [Other] - 1 Week Zenaida Salgado MD [Primary Care Provider] - 1 Week Discharge Medications: New amoxicillin-pot clavulanate [Augmentin] 250-62.5 mg/5 mL suspension for reconstitution 10 ml PO Q8H 5 Days Qty: 150 0RF Continued aspirin 81 mg Tablet,Chewable 81 mg feeding tube DAILY 0RF atorvastatin 80 mg Tablet 80 mg feeding tube BEDTIME 0RF famotidine 40 mg Tablet 40 mg feeding tube BEDTIME 0RF melatonin 3 mg Tablet 18 mg PO DAILY 0RF omeprazole 20 mg Capsule,Delayed Release(Dr/Ec) 20 mg feeding tube DAILY@1999 0RF levetiracetam 100 mg/mL Solution 1,500 mg feeding tube BID 0RF Eliquis 5 mg Tablet 5 mg feeding tube BID 0RF docusate sodium 50 mg/5 mL Liquid 200 mg feeding tube DAILY@1999 0RF loperamide 2 mg Capsule 2 mg PO Q6H MDD 8 MG PRN (Reason: Loose Stool) 0RF olanzapine 10 mg Tablet 10 mg feeding tube DAILY@1999 0RF methimazole 5 mg Tablet 5 mg PO DAILY 0RF metoprolol tartrate 25 mg Tablet 25 mg feeding tube TID 0RF Discharge Orders: Discharge Order (Routine); Ordered 08/25/21 Ordered By: Autumn Hernandez Diet: advance to usual diet Activity on Discharge: As tolerated Stand Alone Forms: Patient Portal Discharge page Care Plan Goals: Read below Health Concerns: Read below Plan of Treatment: Read below Assessment: You were evaluated the hospital for chest pain. CT scan showed evidence of pneumonia along with problem of the gastrostomy. You were treated with IV antibiotics with good response and weaned off the oxygen. You were evaluated by IR team who fixed your gastrostomy. You tolerated diet well with no reported problems Evaluated by Physical therapy and was able to ambulate. Continue antibiotics as prescribed
--- NOTE | 2021-08-25 10:22 | MHC.CM.PN ---
Addendum entered by Dayana Bunch 08/25/21 12:16: SISTER HCP REY ([phone]) AWARE OF PATIENT'S RETURN Original Note: PATIENT TO RETURN TO [facility] FOR A 1300 TRANSPORT REQUEST RN AND UNIT AWARE OF PLAN. THIS CASE SEALER TO CONTACT HCP AND INFORM HER WELL.
[2021-08-25 12:00] VITALS: BP 139/70; PULSE 55; RESP 15; TEMP 36.4; O2SAT 93
== END 2021-08-25 13:37 | disposition skilled nursing facility (03) | DRG 137 ==
LOC: HO.ED 08-23 06:57 → HO.EDOVER 08-23 14:27 → HO.S3 08-23 18:56
PROVIDERS: Admitting Provider Internal Medicine; Emergency Provider Emergency Medicine Emergency Medical Services; PCP Internal Medicine; Visit Provider Student in an Organized Health Care Education/Training Program
DX: J69.0 Pneumonitis due to inhalation of food and vomit (principal); E87.1 Hypo-osmolality and hyponatremia; F10.20 Alcohol dependence, uncomplicated; F11.20 Opioid dependence, uncomplicated; I25.10 Atherosclerotic heart disease of native coronary artery without angina pectoris; I25.2 Old myocardial infarction; K94.23 Gastrostomy malfunction; F14.20 Cocaine dependence, uncomplicated; Z85.05 Personal history of malignant neoplasm of liver; Z85.818 Personal history of malignant neoplasm of other sites of lip, oral cavity, and pharynx; Z20.822 Contact with and (suspected) exposure to COVID-19; Z79.01 Long term (current) use of anticoagulants; Z79.82 Long term (current) use of aspirin; Z79.899 Other long term (current) drug therapy
CPT/HCPCS: 36415; 49452; 71045; 71275; 80048; 80053; 81003; 82947; 83605; 83690; 84484; 85025; 85027; 85379; 85730; 87040; 87635; 93005; 96365; 96375; 96376; 97116; 97162; 99285; 99291; J0295; J2270; J2405; J2543; Q9967

== ENCOUNTER 2021-09-06 22:36 | Emergency (ER) | payer MEDICAID, SELFPAY ==
[2021-09-06 22:42] VITALS: BP 136/95; PULSE 100; RESP 16; TEMP 36.1; O2SAT 95; BMI 22.1
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
[2021-09-06 22:54] VITALS: BP 134/92; PULSE 95; RESP 16; O2SAT 96
[2021-09-06 23:11] LABS: Appearance Urine CLEAR; Color Urine YELLOW; Glucose Urine UA NEG (NEG); Leukocyte Esterase Urine NEG (NEG); Nitrite Urine NEG (NEG); Specific Gravity - Urine <= 1.005 (1.005-1.025); Urine Blood NEG (NEG); Urine Ketones NEG (NEG); Urine Protein NEG (NEG-TRACE)
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
[2021-09-07 06:09] VITALS: BP 137/91; PULSE 99; RESP 16; TEMP 37; O2SAT 95
--- NOTE | 2021-09-07 08:05 | PHA.MEDREC ---
Pharmacy Consult ? Medication Reconciliation Pharmacy has completed the medication reconciliation. Patient came from [facility] with a medication list. Elizabeth Lin, BunnyD
[2021-09-07] MEDS: Apixaban 5 MG TABLET G-TUBE ×2 (10:06→21:35)
[2021-09-07] MEDS: Metoprolol Tartrate 25 MG TABLET G-TUBE ×3 (10:06→21:36)
[2021-09-07] MEDS: Aspirin 81 MG TAB.CHEW G-TUBE (10:06)
[2021-09-07] MEDS: traZODone HCL 25 MG HALFTAB G-TUBE (10:15)
[2021-09-07] MEDS: levETIRAcetam Oral Soln 500 MG/5 ML 1500 MG G-TUBE ×2 (10:50→21:36)
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
[2021-09-07] MEDS: LORazepam 1 MG TABLET 2 MG PO (14:53)
[2021-09-07 15:03] VITALS: BP 141/98; PULSE 64; RESP 18; O2SAT 97
--- NOTE | 2021-09-07 15:29 | PC.NURSE ---
PSYCH AT BEDSIDE FOR EVAL
--- NOTE | 2021-09-07 15:40 | PM.PSYCN ---
History of Present Illness Date of Service: 09/07/21 Chief Complaint: crisis Reason for Consult: agitated/violent behavior at intermediate HPI Narrative: per 09/06 ED Note: Patient comes to the emergency room via EMS.? Since the earlier today there was a conflict between the patient and his roommate.? Patient gets all his food through a G-tube, his roommate was eating solid food, patient wanted to eat something solid and take his food.? Then patient was switched to another room, patient wanted to go to sleep, turned the lights off, then his new roommate turn the lights on and they had a verbal argument.? EMS reports that the intermediate reported no physical incidence.? The staff wanted to Section 12 the patient, although the patient has no SI, no HI, and no physical aggression.? Patient states that he does not know why he is here in the emergency room, states that he only got in an argument with his roommate.? EMS reports that the patient's nurse at the facility told EMS that they will refuse to take the patient back tonight regardless if he is medically cleared. 09/07: on interview with this typewriter tester, pt is cooperative, although irritable and edgy. using expletives, asking to be let go from this place and returned to [facility]. he is able to articulate what he did at [facility] that was not acceptable and that resulted in his being sent to the ED, which was laying hands on a peer because the chepe was an asshole. he was also able to describe a more acceptable way of handling any situation there where he is feeling agitated or provoked, which is to seek out staff to discuss the situation with. he denies any safety concerns or intent to harm anyone else moving forward. he is able to report that he carries a dementia diagnosis, although he does not agree with it. he asks repeatedly when he can return to [facility] and asserts he is being illegitimately held here. Past Psychiatric History: pt reports h/o being hospitalized due to cutting himself while in [facility], with the intent of getting a break from the [facility] routine by doing so. he states that one each such occasion he would get to spend 20 days in the formerly [facility] hospital. he denied any h/o SA or SIBI outside of the context described above. he denied any other psych Dx than dementia. Medical Evaluation Reviewed: Yes Personal & Social History: pt has spent much time in [facility] and is [facility], reportedly. [facility] Medical History (Updated 09/07/21 @ 15:51 by Bertin Walton) Dementia History of alcohol dependence History of chest pain History of GI bleed History of liver cancer History of throat cancer NSTEMI (non-ST elevated myocardial infarction) Surgical History History of surgery of liver Family History: unknown Substance History: alcohol Trauma History: unknown Diagnostics Vital Signs (24Hr): Vital Signs - 24 hr 09/06/21 22:42 09/06/21 22:54 09/07/21 06:09 Temperature 97 F 98.6 F Pulse Rate 100 95 99 Respiratory Rate 16 16 16 Blood Pressure 136/95 H 134/92 H 137/91 H Pulse Oximetry 95 96 95 09/07/21 15:03 Temperature Pulse Rate 64 Respiratory Rate 18 Blood Pressure 141/98 H Pulse Oximetry 97 BMI result Body Mass Index 22.1 Labs Labs: Laboratory Results - last 48 hr 09/06/21 23:02 Urine Color YELLOW Urine Appearance CLEAR Urine pH 7.0 Ur Specific [place] <= 1.005 Urine Protein NEG Urine Glucose (UA) NEG Urine Ketones NEG Urine Blood NEG Urine Nitrite NEG Ur Leukocyte Esterase NEG Mental Status Exam Mental Status Exam Narrative: tall and lanky, dressed appropriately in street clothes. cooperative with interview, no PMA/PMR. speech nml in rate and amount and loudness. somewhat reduced prosody, mildly dysarthric. thoughts linear and logical. affect constricted. mood good. denies SI/HI/AVH. Medications Medications Current Medications Apixaban (Apixaban 5 Mg Tablet) 5 mg G-TUBE BID [facility] Last Admin: 09/07/21 10:06 Dose: 5 mg Documented by: Aspirin (Aspirin 81 Mg Tab.Chew) 81 mg G-TUBE DAILY [facility] Last Admin: 09/07/21 10:06 Dose: 81 mg Documented by: Atorvastatin Calcium (Atorvastatin Calcium 80 Mg Tablet) 80 mg G-TUBE BEDTIME [facility]URO Famotidine (Famotidine 20 Mg Tablet) 40 mg G-TUBE BEDTIME [facility]URO Levetiracetam (Levetiracetam Oral Soln 500 Mg/5 Ml) 1,500 mg G-TUBE BID [facility] Last Admin: 09/07/21 10:50 Dose: 1,500 mg Documented by: Loperamide HCl (Loperamide Hcl 2 Mg Capsule) 2 mg G-TUBE Q6H PRN PRN Reason: Loose Stool Metoprolol Tartrate (Metoprolol Tartrate 25 Mg Tablet) 25 mg G-TUBE TID ARTURO; Protocol Last Admin: 09/07/21 14:02 Dose: 25 mg Documented by: Olanzapine (Olanzapine 7.5 Mg Tablet) 15 mg G-TUBE BEDTIME ARTURO Omeprazole (Omeprazole 20 Mg/10 Ml Susp.Recon) 20 mg G-TUBE BEDTIME ARTURO Trazodone HCl (Trazodone Hcl 25 Mg Halftab) 25 mg G-TUBE DAILY [facility] Last Admin: 09/07/21 10:15 Dose: 25 mg Documented by: Trazodone HCl (Trazodone Hcl 50 Mg Tablet) 50 mg G-TUBE BEDTIME PRN PRN Reason: Insomnia Trazodone HCl (Trazodone Hcl 50 Mg Tablet) 50 mg G-TUBE BEDTIME ARTURO Allergies Allergies Allergy/AdvReac Type Severity Reaction Status Date / Time No Known Allergies Allergy Verified 07/21/21 20:16 Assessment & Plan Assessment & Plan (1) Dementia: Status: Acute Code(s): F03.90 - Unspecified dementia without behavioral disturbance Assessment and Plan: this pt is able to appreciate what he did wrong and why others considered it wrong, as well as what he could do differently moving forward which might be a more acceptable way of handling his circumstance. while it is certainly possible his dementia played some role in the reactivity and impulsivity which led to this behavior, he also has apparently spent quite a lot of time in [facility] and very likely his personality structure was already reactive and impulsive prior to his dementia diagnosis. one might consider adding another low dose of trazodone in the afternoon in an attempt to blunt such reactivity/impulsivity. but in general, this man is likely at chronically elevated risk of antisocial behaviors such as interpersonal violence controlled largely by longstanding personality factors rather than treatable mental illness. this trend is only likely to worsen as his dementia progresses and he loses executive function. for the time being, he appears to know right from wrong and can control his behavior if he wishes (as he has been doing here despite being irritated and demanding to leave). Plan add trazodone 25 mg Q3pm daily to blunt any reactivity in the afternoon. return to [facility] TATE. I spent __30____ minutes with the patient and/or on the patient floor today, greater than?50% of which was spent counseling/coordinating care. Patient educated on: diagnosis
[2021-09-07] MEDS: OLANZapine 10 MG TABLET PO (17:15)
[2021-09-07 19:05] VITALS: BP 165/100; PULSE 63; RESP 16; O2SAT 97
[2021-09-07 21:24] VITALS: BP 154/102; PULSE 92; RESP 16; TEMP 36.7; O2SAT 96
[2021-09-07] MEDS: Atorvastatin Calcium 80 MG TABLET G-TUBE (21:35)
[2021-09-07] MEDS: Famotidine 20 MG TABLET 40 MG G-TUBE (21:35)
[2021-09-07] MEDS: OLANZapine 7.5 MG TABLET 15 MG G-TUBE (21:35)
[2021-09-07] MEDS: traZODone HCL 50 MG TABLET G-TUBE ×2 (21:35→21:37)
--- NOTE | 2021-09-07 23:12 | PC.NURSE ---
This RN attempted to set up tube feeding that was scheduled for continuous 24 hr cycles. PT refused being connected to tubing all night and stated that he has been receiving three 450 mL feed boluses throughout the day today. This RN will inform oncoming nurse of this plan and discuss plan to change diet orders. aware.
[2021-09-08 06:21] VITALS: RESP 16
--- NOTE | 2021-09-08 09:11 | MHC.CM.ED ---
Per Sybil, liaison at [facility], patient can leave at 130pm. Action BLS booked. Med nec with chart. Patient, Kp RN and Dr Camargo aware. Attempted to reach patient's sister/HCP, Sisi via telephone. Voicemail was full and was not able to leave a message. Continue to monitor for d/c needs.
[2021-09-08] MEDS: levETIRAcetam Oral Soln 500 MG/5 ML 1500 MG G-TUBE (09:52)
[2021-09-08] MEDS: Aspirin 81 MG TAB.CHEW G-TUBE (09:52)
[2021-09-08] MEDS: traZODone HCL 25 MG HALFTAB G-TUBE (09:52)
[2021-09-08] MEDS: Metoprolol Tartrate 25 MG TABLET G-TUBE (09:54)
[2021-09-08] MEDS: Apixaban 5 MG TABLET G-TUBE (09:57)
[2021-09-08 15:18] VITALS: BP 135/96; PULSE 106; RESP 16; TEMP 37.3; O2SAT 92
== END 2021-09-08 15:48 | disposition skilled nursing facility (03) ==
PROVIDERS: Emergency Provider Emergency Medicine; PCP Internal Medicine
DX: F03.90 Unspecified dementia, unspecified severity, without behavioral disturbance, psychotic disturbance, mood disturbance, and anxiety (principal); F23 Brief psychotic disorder; Z79.899 Other long term (current) drug therapy; Z79.82 Long term (current) use of aspirin
CPT/HCPCS: 81003; 99284; 99285

== ENCOUNTER 2021-12-31 05:18 | Emergency (ER) | payer MEDICAID, SELFPAY ==
[2021-12-31 05:21] VITALS: BP 117/65; PULSE 70; O2SAT 94
[2021-12-31 05:25] VITALS: BP 101/69; PULSE 77; RESP 18; TEMP 36.8; O2SAT 95
[2021-12-31 05:38] VITALS: BMI 18.3
--- NOTE | 2021-12-31 07:13 | ED.DENTAL ---
HPI - Dental/Oral General Chief complaint: Dental/Oral Stated complaint: dental bleeding Time Seen by Provider: 12/31/21 07:13 Source: patient Mode of arrival: EMS History of Present Illness HPI Narrative: 71-year-old male who is on Eliquis although patient stated that he was only on aspirin he was sent in for persistent bleeding of his right upper gums after dental procedure. Teeth map: 1. Teeth removed Related Data Home Medications Medication Instructions Recorded Confirmed apixaban 5 mg tablet (Eliquis) 5 mg feeding tube BID 08/23/21 09/07/21 aspirin 81 mg chewable tablet 81 mg feeding tube DAILY 08/23/21 09/07/21 atorvastatin 80 mg tablet 80 mg feeding tube BEDTIME 08/23/21 09/07/21 famotidine 40 mg tablet 40 mg feeding tube BEDTIME 08/23/21 09/07/21 levetiracetam 100 mg/mL oral 1,500 mg feeding tube BID 08/23/21 09/07/21 solution loperamide 2 mg capsule 2 mg feeding tube Q6H PRN Loose 08/23/21 09/07/21 Stool metoprolol tartrate 25 mg tablet 25 mg feeding tube TID 08/23/21 09/07/21 omeprazole 20 mg capsule,delayed 20 mg feeding tube BEDTIME 08/23/21 09/07/21 release lactose-reduced food with fiber 1 ea feeding tube QID 09/07/21 09/07/21 0.06 gram-1.5 kcal/mL oral liquid (Jevity 1.5 Devin) olanzapine 15 mg tablet 15 mg feeding tube BEDTIME 09/07/21 09/07/21 trazodone 50 mg tablet 25 mg feeding tube DAILY 09/07/21 09/07/21 trazodone 50 mg tablet 50 mg feeding tube BEDTIME 09/07/21 09/07/21 trazodone 50 mg tablet 50 mg feeding tube BEDTIME PRN 09/07/21 09/07/21 Insomnia Allergies Allergy/AdvReac Type Severity Reaction Status Date / Time No Known Allergies Allergy Verified 07/21/21 20:16 Review of Systems Review of Systems: Pertinent positives and negatives as stated in HPI 10 point review of systems is otherwise negative. PMFSH Past Medical History Source: nursing notes reviewed Medical History History of alcohol dependence History of chest pain History of GI bleed History of liver cancer History of throat cancer NSTEMI (non-ST elevated myocardial infarction) Surgical History History of surgery of liver Family History Family History Other No family history of coronary artery disease Social History Social History Household Members: None Housing: [facility] Living Do you presently have visiting nurse or other home services: No Alcohol intake: former Patient Tobacco Use Status: Never used Tobacco Advance Directives: No Advance Directives Information Provided: Yes service: No Current occupational status: disabled Physical Exam Vital Signs: Vital Signs: Last Vital Signs Temp 98.3 F 12/31/21 05:25 Pulse 77 12/31/21 05:25 Resp 18 12/31/21 05:25 BP 101/69 12/31/21 05:25 Pulse Ox 95 12/31/21 05:25 O2 Del Method 12/31/21 05:25 BMI result Body Mass Index 18.3 VITAL SIGNS: Reviewed. GENERAL: Cachectic, chronically ill, in no acute distress. HEAD: Normocephalic/atraumatic EYES: PERRLA, EOMI EARS: Ext canals without abnormality OROPHARYNX: no oral lesions noted, posterior pharynx clear, 3 teeth removed on the right upper posterior with some bleeding but not profuse LUNGS: Normal breath sounds. No adventitious sounds or accessory muscle use. SpO2<95> CARDIOVASCULAR: Regular rate and rhythm without noted murmurs ABDOMEN: Soft, non-tender, non-distended with bowel sounds. NEUROLOGIC: Alert and oriented x 4. Course Course Course Narrative: 71-year-old male with history and clinical presentation consistent with dental procedure and likely prolonged bleeding times under contributing to patient's difficulty with hemostasis. It appears to be minor at this time and likely could be resolved with direct pressure with gauze which we will attempt. On re-evaluation patient no longer bleeding any will be sent home with instructions to use moist gauze soaked in ice field water to help control bleeding and then resume his anticoagulation as directed. Discharge Plan Discharge Clinical Impression: Surgical wound hemorrhage after dental procedure Patient Disposition: er SNF Instructions: Tooth Extraction (DC) Additional Instructions: 1. Resume all home medications as prescribed and as directed after your dental procedure. 2. If you notice bleeding occurring again please apply gauze that has been soaked in water with ice and clamped down for 5 minutes and then re-evaluate. 3. Call your dentist today and established an appointment for follow-up. Return to the ER for worsening symptoms. Prescriptions: No Action aspirin 81 mg Tablet,Chewable 81 mg feeding tube DAILY atorvastatin 80 mg Tablet 80 mg feeding tube BEDTIME famotidine 40 mg Tablet 40 mg feeding tube BEDTIME omeprazole 20 mg Capsule,Delayed Release(Dr/Ec) 20 mg feeding tube BEDTIME levetiracetam 100 mg/mL Solution 1,500 mg feeding tube BID Eliquis 5 mg Tablet 5 mg feeding tube BID loperamide 2 mg Capsule 2 mg feeding tube Q6H MDD 8 MG PRN (Reason: Loose Stool) metoprolol tartrate 25 mg Tablet 25 mg feeding tube TID trazodone 50 mg Tablet 25 mg feeding tube DAILY trazodone 50 mg Tablet 50 mg feeding tube BEDTIME trazodone 50 mg Tablet 50 mg feeding tube BEDTIME PRN (Reason: Insomnia) olanzapine 15 mg Tablet 15 mg feeding tube BEDTIME Jevity 1.5 Devin 0.06 gram-1.5 kcal/mL Liquid 1 ea feeding tube QID
[2021-12-31 09:33] VITALS: BP 111/73; RESP 20
[2021-12-31 10:29] VITALS: BP 124/75; PULSE 66; RESP 18; O2SAT 97
--- NOTE | 2021-12-31 10:40 | PC.NURSE ---
report given to [facility] rn
== END 2021-12-31 10:40 | disposition skilled nursing facility (03) ==
PROVIDERS: Emergency Provider Student in an Organized Health Care Education/Training Program
DX: L76.22 Postprocedural hemorrhage of skin and subcutaneous tissue following other procedure (principal); Y83.8 Other surgical procedures as the cause of abnormal reaction of the patient, or of later complication, without mention of misadventure at the time of the procedure; Y92.9 Unspecified place or not applicable; I25.2 Old myocardial infarction; Z79.82 Long term (current) use of aspirin
CPT/HCPCS: 99282; 99284

== ENCOUNTER 2022-01-08 12:14 | Outpatient (REF) | payer MEDICAID, SELFPAY ==
--- NOTE | ~2022-01-08 | FL_ITS ---
EXAMINATION: KUB CLINICAL INFORMATION: Evaluate gastrostomy tube. COMPARISON: None TECHNIQUE: Supine view of the abdomen FINDINGS: There is a G-tube overlying the left epigastric region probably in the stomach however for definite evaluation of the catheter Gastrografin injection AP KUB can be performed. FL/FL drain tube change IMPRESSION: The G-tube with balloon overlies the left upper quadrant. To evaluate definite position of G tube a Gastrografin injection through the tube followed by KUB imaging can be performed if there is clinical doubt of G-tube position.
== END 2022-01-08 12:15 | disposition home or self-care (01) ==
LOC: HO.XRAY 12:14
PROVIDERS: PCP Internal Medicine; Visit Provider Surgery
DX: T85.528A Displacement of other gastrointestinal prosthetic devices, implants and grafts, initial encounter (principal)
CPT/HCPCS: 43762; 75984; 99202